=== PATIENT | female | born 1945 | race Caucasian/White ===

== ENCOUNTER 2020-01-29 02:29 | Outpatient (CLI) | payer MEDICARE, MEDICAID, SELFPAY ==
--- NOTE | 2020-01-29 | DI.CTLCSR_ITS ---
EXAM: CT CHEST LUNG CANCER SCREEN CLINICAL HISTORY: SCREENING FOR LUNG CA, FORMER SMOKER,[id number] TECHNIQUE: COMPARISON: No exams were available for comparison FINDINGS: Chest CT was performed utilizing low-dose lung cancer screening protocol. Images obtained through the upper abdomen show unremarkable appearance of visualized portions of the liver, spleen, pancreas, adrenals, and kidneys. There is no mediastinal or hilar adenopathy. Tracheobronchial tree appears intact. Note is made of coronary artery calcification. There is moderate central lobular emphysema. There is no pleural effusion. There are linear basilar pulmonary scars. There is a 4 millimeter in diameter left lower lobe noncalcified well-circumscribed intrapulmonary no dule. No additional nodule seen. IMPRESSION: Probably benign pulmonary nodule. Continue annual screening with LD CT in 12 months. Lung RADS Cat 2 - Benign Appearance / Behavior: Nodules with a very low likelihood of becoming a clin ically active cancer due to size or lack of growth RADIATION DOSE DELIVERED: 83.49mGy.cm Total DLP
== END 2020-01-29 02:49 ==
PROVIDERS: PCP Nurse Practitioner Family; Visit Provider Internal Medicine Pulmonary Disease
DX: Z12.2 Encounter for screening for malignant neoplasm of respiratory organs (principal); Z87.891 Personal history of nicotine dependence; R91.1 Solitary pulmonary nodule
CPT/HCPCS: G0297

== ENCOUNTER → 2023-01-24 01:43 | Outpatient (CLI) | payer MEDICARE, MEDICAID, SELFPAY ==
--- NOTE | 2023-01-24 | DI.CTLCSR_ITS ---
Exam(s) CT CHEST LUNG CANCER SCREEN EXAM: CT CHEST LUNG CANCER SCREEN CLINICAL HISTORY: FORMER SMOKER, SCREENING FOR LUNG CANCER, Z87.891 TECHNIQUE: Imaging Protocol: Axial computed tomography images with coronal and sagittal reformatted images were created and reviewed COMPARISON: CT CT CHEST LUNG CANCER SCREEN from 01/29/2020 FINDINGS: Tracheobronchial tree: Patent where visualized. Pulmonary parenchyma: Mild emphysematous changes are present in the lungs. Stable scarring is seen i n the lung bases. No new focal consolidations are seen. Lung Nodules: There is a stable 4 mm nodule in the right lower lobe. There is a stable 4 mm nodule i n the left lower lobe. No other pulmonary nodules are seen. Mediastinum and Luciana: No dominant adenopathy or fluid collection. The esophagus is unremarkable. Thyroid gland: Unremarkable. Lymph nodes: Unremarkable. Pleura: No effusion or pneumothorax. Heart: The heart is not dilated. Coronary artery calcification and/or stents are present. No pericar dial effusion. Aorta: Thoracic aorta non-dilated.Atherosclerosis is present. Upper abdomen: There are anterior abdominal wall hernias present. They are incompletely imaged. Th ere is a knuckle of bowel seen within 1 of the hernia defects. Soft Tissues: Unremarkable. Bones: There has been further compression of the T6 compression deformity. There is loss of approxim ately 3rd of the height of the vertebral body. There is a stable compression deformity of T5. Since the prior examination there has been an interval compression fracture deformity of T4 with loss of a pproximately 15 percent of the height of the vertebral body anteriorly. There is no retropulsion. T he bones are osteopenic. Age-appropriate degenerative changes are seen in the spine. IMPRESSION: 1. Two stable 4 mm pulmonary nodules. 2. Thoracic compression fracture deformities. There is a T4 compression fracture deformity which was new since examination from 2019 but indeterminate in age. Lung RADS Cat 2 - Benign Appearance / Behavior: Nodules with a very low likelihood of becoming a clin ically active cancer due to size or lack of growth Lung-RADS 1.0 CATEGORIES: Category 0 - Prior chest CT exam(s) being located for comparison. Category 1 - Annual screening in 12 months. No nodules or definitely benign nodules. Category 2 - Annual screening in 12 months. Benign appearance. Nodules with low likelihood of becomin g active cancer. Category 3 - 6-month follow-up. Probably benign. Short-term follow-up suggested. Nodules with low lik elihood of becoming active cancer. Category 4A - 3-month follow-up and CT/PET if >8 mm in size. Suspicious finding. Findings which requi re additional testing. Category 4B - Findings which require additional testing and tissue sampling. Suspicious finding. Category 4X - Category 3 or 4 nodules with additional features or imaging findings that increases the suspicion of malignancy. Modifier S- Potentially clinically significant finding. (Non lung cancer) RADIATION DOSE DELIVERED: 68.09mGy.cm Total DLP 68.09mGy.cmTotal DLP DATA REPOSITORY: All CT scans at this facility are submitted to the National Radiology Data Registry (NRDR) Dose Index Registry (DIR) with the [employer] ([employer]). RADIATION OPTIMIZATION: All CT scans at this facility use at least one of these dose optimization te chniques: automated exposure control; mA and/or kV adjustment per patient size (includes targeted exa ms where dose is matched to clinical indication); or iterative reconstruction.
== END ==
PROVIDERS: PCP Nurse Practitioner Family; Visit Provider Internal Medicine Pulmonary Disease
DX: Z87.891 Personal history of nicotine dependence (principal); Z12.2 Encounter for screening for malignant neoplasm of respiratory organs; R91.8 Other nonspecific abnormal finding of lung field
CPT/HCPCS: 71271